=== PATIENT | female | born 1950 | race African-American/Black ===

== ENCOUNTER 2017-04-14 08:46 | Observation (INO) | payer OTHER, MEDICARE ==
[~2017-04-14] VITALS: Ht 162.6 cm; Wt 82.6 kg
[~2017-04-14 08:46] MED LIST: ALBUTEROL0.09 MG/A1 INH; ASPIR 8181 MG PO; AZITHROMYCIN250 MG PO; BENZONATATE200 MG PO; CIPRO 500MG TA500 MG PO; CYCLOBENZAPRINE10 M3 PO; CYCLOBENZAPRINE5 M2 PO; FLAG500 PO; GLIPIZIDE5 M2 PO; LOSARTAN POTAS100 M1 PO; METFORMIN HCL500 M1 PO; TRAMADOL HCL50 M1 PO; TRAMADOL50 MG PO; TYLENOL #31 TAB PO; TYLENOL WITH C1 EACH PO; ZOFRAN ODT4 MG SL
--- NOTE | 2017-04-14 08:56 | NUR ---
C/O DIZZINESS X 1 HOUR. DENIES CHEST PAIN OR SOB. STATES HSE FEELS LIKE SHE IS GOING TO PASS OUT. PMH: LEFT MASTECTOMY 03/08.
--- NOTE | 2017-04-14 09:01 | ED GENERAL ADULT ---
History of Present Illness General Chief Complaint: Dizziness Stated Complaint: DIZZY,BACK PAIN Source: patient, old records Exam Limitations: no limitations Vital Signs & Intake/Output Vital Signs & Intake/Output Vital Signs Date Time Temp Pulse Resp B/P B/P Pulse O2 O2 Flow FiO2 Mean Ox Delivery Rate 04/14 1152 95.2 57 20 185/93 99 Room Air 04/14 0912 71 168/84 04/14 0910 95.5 63 18 170/77 99 Allergies Coded Allergies: morphine (Mild, GI UPSET 12/24/15) oxycodone (Mild, GI UPSET 12/24/15) Penicillins (12/24/15) Sulfa (Sulfonamide Antibiotics) (12/24/15) ibuprofen (12/24/15) Reconcile Medications Albuterol Sulfate (Albuterol Sulfate Hfa) 90 MCG HFA.AER.AD 2 PUFF INH Q4-6 PRN PRN SHORTNESS OF BREATH 90 MCG PER PUFF Aspirin (Ecotrin) 81 MG TABLET.DR 1 TAB PO DAILY HEART HEALTH (Reported) Azithromycin 250 MG TABLET 1 DP PO AD INFECTION (Reported) 2 the first day followed by 1 for days 2-5 Benzonatate 200 MG CAPSULE 1 CAP PO TID COUGH (Reported) Ciprofloxacin (Cipro) 500 MG TABLET 1 TAB PO BID DIVERTICULITIS CYCLOBENZAPRINE HCL (Cyclobenzaprine Hydrochloride) 10 MG TABLET 1 TAB PO 4 TIMES/DAY MUSCLE SPASMS (Reported) Cyclobenzaprine HCl 5 MG TABLET 1 TAB PO QHS PRN muscle spasms Glipizide 5 MG TABLET 1 TAB PO DAILY DIABETES (Reported) Losartan Potassium 100 MG TABLET 1 TAB PO DAILY HEART (Reported) Metformin Hydrochloride (Metformin HCl) [address] 2 TAB PO BID DIABETES ( Reported) Metronidazole (Flagyl) 500 MG TAB 500 MG PO TID DIVERTICULITIS Ondansetron (Zofran Odt) 4 MG TAB.RAPDIS 1 TAB SL Q8HR PRN NAUSEA TRAMADOL HCL (Tramadol) 50 MG TAB 1 TAB PO Q6P PRN PAIN Tylenol With Codeine (Tylenol With Codeine #3 Tablet) 300 MG-30 MG TABLET 1 TAB PO Q6HR PRN PAIN Tylenol With Codeine (Tylenol With Codeine #3 Tablet) 1 EACH TABLET 1 TAB PO Q6HR PRN pain Triage Note: C/O DIZZINESS X 1 HOUR. DENIES CHEST PAIN OR SOB. PMH: LEFT MASTECTOMY 03/08. Triage Nurses Notes Reviewed? yes HPI: Patient woke up this morning and felt very lightheaded and liek she was going to pass out. She then developed a sharp stabbing pain in her mid back. Her lightheadedness continues but the sharp pain has decreased to a dull ache. She denies any chest pain or shortness of breath. There are no palpitations. Her lightheadedness is worsened with standing. There is no room spinning dizziness. There is no nausea or vomiting. The pain in her back was 7 out of 10 and sharp. It is currently 3 out of 10 and achy. There is no radiaiton. No aggrivating or mitigating factors. Past History Travel History Traveled to [place] past 21 day No Medical History Any Pertinent Medical History? 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 No Review of Systems Review of Systems Constitutional: Reports: no symptoms. EENTM: Reports: no symptoms. Respiratory: Reports: no symptoms. Cardiovascular: Reports: no symptoms. GI: Reports: no symptoms. Genitourinary: Reports: no symptoms. Musculoskeletal: Reports: see HPI, back pain. Skin: Reports: no symptoms. Neurological/Psychological: Reports: see HPI. Hematologic/Endocrine: Reports: no symptoms. Immunologic/Allergic: Reports: no symptoms. All Other Systems: Reviewed and Negative Physical Exam Physical Exam General Appearance: well developed/nourished, alert, awake, anxious, mild distress Head: atraumatic, normal appearance Eyes: Bilateral: PERRL, EOMI, other (no nystagmus). Ears, Nose, Throat: normal pharynx, normal ENT inspection, hearing grossly normal Neck: normal inspection, supple, full range of motion Respiratory: normal breath sounds, chest non-tender, no respiratory distress, lungs clear Cardiovascular: regular rate/rhythm, normal peripheral pulses Gastrointestinal: normal bowel sounds, soft, non-tender, no organomegaly Back: normal inspection, normal range of motion, no vertebral tenderness Extremities: normal inspection, normal capillary refill, normal range of motion, no edema Neurologic/Psych: no motor/sensory deficits, awake, alert, oriented x 3, normal mood/affect Skin: intact, normal color, warm/dry Lymphatic: no anterior cervical durga Core Measures ACS in differential dx? No CVA/TIA Diagnosis: Yes NIH Stroke Scale: Total 0 Dt/Tm Last Known Well: Yes Date Last Known Well: 04/13/17 Time Last Known Well: 2199 Neurological S/S of CVA: Dizziness Symptom start date: 04/13/17 Symptom start time: 2199 Reason tPA not ordered: Medical Contraindication Severe Sepsis Present: No Septic Shock Present: No Bedside Swallow Eval Done: No Result of Evaluation: Pass Progress Differential Diagnoses I considered the following diagnoses in my evaluation of the patient: [PE, AMI, ACS, electrolyte abnormality] Plan of Care: Orders Procedure Date/time Status Heart Healthy Diet 04/14 D Active Saline Lock 04/14 145 Active Misc Message 04/14 1459 Active ED Holding Orders 04/14 1459 Active Vital Signs 04/14 1459 Active Activity/Ambulation 04/14 1459 Active Code Status 04/[address] in observation 04/14 1458 Active Patient Data 04/14 1451 Active MISTAKE 04/14 0901 Active TROPONIN LEVEL 04/14 0859 Complete COMPREHENSIVE METABOLIC PANEL 04/14 0859 Complete CBC WITHOUT DIFFERENTIAL 04/14 0859 Complete EKG 04/14 0848 Active Laboratory Tests 04/14/17 0900: Anion Gap 11, Estimated GFR > 60, BUN/Creatinine Ratio 22.9, Glucose 160 H, Calcium 9.6, Total Bilirubin 0.5, AST 16, ALT 25, Alkaline Phosphatase 96, Troponin I < 0.01, Total Protein 6.5, Albumin 4.2, Globulin 2.3, Albumin/ Globulin Ratio 1.8, CBC w Diff NO MAN DIFF REQ, RBC 4.05 L, MCV 88.5, MCH 28.5, RDW 14.2, MPV 8.7, Gran % 66.5, Lymphocytes % 21.1, Monocytes % 8.9, Eosinophils % 2.7, Basophils % 0.8, Absolute Granulocytes 3.7, Absolute Lymphocytes 1.2, Absolute Monocytes 0.5, Absolute Eosinophils 0.1, Absolute Basophils 0, PUBS MCHC 32.3 L Diagnostic Imaging: Viewed by Me: CT Scan. Discussed w/RAD: CT Scan. Radiology Impression: PATIENT: RAFAEL ARAGON PRESENT AGE: 67 PATIENT ACCOUNT NO: [id number] : 51 LOCATION: [facility] ([place]) ORDERING PHYSICIAN: YRN HI MD SERVICE DATE: 04/14/17-1007 EXAM TYPE: CAT - CTA CHEST-PULMONARY EMBOLISM EXAMINATION: CT ANGIOGRAM CHEST WITH AND WITHOUT CONTRAST (CT PULMONARY ANGIOGRAM FOR PE) CLINICAL INFORMATION: Chest pain and shortness of breath. COMPARISON: CT chest 09/02/2016. TECHNIQUE: Prior to contrast administration, noncontrast localization images were obtained. Subsequently, multidetector volumetric imaging was performed from the thoracic inlet to below the diaphragms following the administration of 94 mL Optiray 350 intravenous contrast. No contrast reaction reported. Sagittal, coronal, and MIP oblique sagittal reformatted images were obtained on the CT workstation, uploaded to PACS, and reviewed. DLP: 509.73 mGy-cm. FINDINGS: QUALITY OF STUDY/ CONTRAST BOLUS: Satisfactory PULMONARY ARTERIES: No central or segmental pulmonary emboli. No right heart strain. THORACIC AORTA: There are mild calcifications of the aortic valve. The ascending thoracic aorta is normal in course and caliber without aneurysmal dilatation or dissection. There is a bovine aortic arch with early takeoff of the left carotid artery from the innominate artery. The descending thoracic aorta is normal in course and caliber without aneurysmal dilatation or dissection. LUNG: No focal consolidation, nodules or masses. PLEURA: No pleural effusion or pneumothorax. MEDIASTINUM: The heart size is normal. No pericardial effusion. A prominent left superior mediastinal lymph node (4, ) and a few other prominent paratracheal nodes are not significantly changed from the prior exam. No evidence of septal bowing or right heart strain. CHEST WALL/AXILLAE: The patient is status post left mastectomy. No enlarged axillary lymph nodes are identified. There are postsurgical changes/scarring in the left axilla. OSSEOUS STRUCTURES: No acute or suspicious osseous abnormality. UPPER ABDOMEN: Unremarkable. No reflux of contrast into the hepatic veins to suggest elevated right heart pressures. IMPRESSION: 1. No evidence of pulmonary embolism. 2. No acute abnormality in the chest. 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 <Electronically signed in Other Vendor System> SIGNED BY: KIARRA URBANO MD 04/14/17 1203 Initial ED EKG: NSR, nonspecific ST T wave chg Prior EKG: unchanged Rhythm Strip: normal sinus rhythm Comments: PT STILL FELT LIGHTHEADED WHEN SHE GOT UP TO GO TO THE BATHROOM AND WHILE SLIDING OVER TO THE CT TABLE. SHE HAS A HISTORY OF VERTIGO BUT DOES NOT REMEBER WHAT THOSE SYMPTOMS WERE. PT IS FEELING BETTER POST ANTIVERT. WILL HAVE HER AMBULATE AND RE-EVAL. PT STILL UNABLE TO AMBULATE. WILL BRING IN TO OBS FOR NEURO CONSULT AND MRI TO R/O POSTERIOR CIRC. CVA. Departure Departure Disposition: STILL A PATIENT Condition: Guarded Clinical Impression Primary Impression: Vertigo Referrals: ANKUSH CHINCHILLA MD (PCP/Family) Departure Forms: Customer Survey General Discharge Information Observation Note Spoke With: ANKUSH CHINCHILLA MD Physician Advisor Notified: LARA CAMPUZANO,CASIE Estrada Place Patient In: Non-ED OBS Care Area Rationale for Observation: My rational for observation is as follows [TELE MONITORING, NEUROLOGY CONSULTATION, MRI/MRA]. Critical Care Note Critical Care Note Critical Care Time: non-applicable
--- NOTE | 2017-04-14 09:09 | NUR ---
EVALUATED BY DR. HI. EKG DONE. LABS DRAWN AND SENT.
[2017-04-14 09:20] LABS: ABSOLUTE BASOPHIL COUNT 0 /CUMM (0.0-0.2); ABSOLUTE EOSINOPHIL COUNT 0.1 /CUMM (0.0-0.7); ABSOLUTE GRANULOCYTE CT 3.7 /CUMM (1.4-6.5); ABSOLUTE LYMPH COUNT 1.2 /CUMM (1.2-3.4); ABSOLUTE MONOCYTE COUNT 0.5 /CUMM (0.10-0.60); BASOPHIL % 0.8 % (0.0-2.0); EOSINOPHIL % 2.7 % (0-5); GRANULOCYTE % 66.5 % (42.2-75.2); HEMATOCRIT 35.8 % (37-47); MEAN CORPUSCULAR HGB 28.5 PG (27.0-31.0); MEAN CORPUSCULAR HGB CONC 32.3 G/DL (33.0-37.0); MEAN CORPUSCULAR VOLUME 88.5 FL (81.0-99.0); MEAN PLATELET VOLUME 8.7 FL (7.4-10.4); PLATELET COUNT 284 /CUMM (130-400); RBC DISTRIBUTION WIDTH 14.2 % (11.5-14.5); RED BLOOD CELL CT 4.05 /CUMM (4.20-5.40); WHITE BLOOD CELL COUNT 5.5 /CUMM (4.8-10.8)
--- NOTE | 2017-04-14 10:30 | NUR ---
TO CT SCAN.
--- NOTE | 2017-04-14 12:03 | CT SCAN REPORT ---
EXAMINATION: CT ANGIOGRAM CHEST WITH AND WITHOUT CONTRAST (CT PULMONARY ANGIOGRAM FOR PE) CLINICAL INFORMATION: Chest pain and shortness of breath. COMPARISON: CT chest 09/02/2016. TECHNIQUE: Prior to contrast administration, noncontrast localization images were obtained. Subsequently, multidetector volumetric imaging was performed from the thoracic inlet to below the diaphragms following the administration of 94 mL Optiray 350 intravenous contrast. No contrast reaction reported. Sagittal, coronal, and MIP oblique sagittal reformatted images were obtained on the CT workstation, uploaded to PACS, and reviewed. DLP: 509.73 mGy-cm. FINDINGS: QUALITY OF STUDY/CONTRAST BOLUS: Satisfactory PULMONARY ARTERIES: No central or segmental pulmonary emboli. No right heart strain. THORACIC AORTA: There are mild calcifications of the aortic valve. The ascending thoracic aorta is normal in course and caliber without aneurysmal dilatation or dissection. There is a bovine aortic arch with early takeoff of the left carotid artery from the innominate artery. The descending thoracic aorta is normal in course and caliber without aneurysmal dilatation or dissection. LUNG: No focal consolidation, nodules or masses. PLEURA: No pleural effusion or pneumothorax. MEDIASTINUM: The heart size is normal. No pericardial effusion. A prominent left superior mediastinal lymph node (4, ) and a few other prominent paratracheal nodes are not significantly changed from the prior exam. No evidence of septal bowing or right heart strain. CHEST WALL/AXILLAE: The patient is status post left mastectomy. No enlarged axillary lymph nodes are identified. There are postsurgical changes/scarring in the left axilla. OSSEOUS STRUCTURES: No acute or suspicious osseous abnormality. UPPER ABDOMEN: Unremarkable. No reflux of contrast into the hepatic veins to suggest elevated right heart pressures. IMPRESSION: 1. No evidence of pulmonary embolism. 2. No acute abnormality in the chest. VTE: negative
--- NOTE | 2017-04-14 12:30 | NUR ---
MEDICATED FOR DIZZINESS.
--- NOTE | 2017-04-14 13:13 | NUR ---
ATTEMPTED TO AMBULATE PT. PT COMPLAINING OF DIZZINESS. AMBULATED BACK TO BED AND MD HI AND JOHN BOTELLO
--- NOTE | 2017-04-14 13:13 | NUR ---
MANUAL BP 160/80
--- NOTE | 2017-04-14 13:30 | NUR ---
DIETARY CALLED FOR FOOD TRAY.
--- NOTE | 2017-04-14 14:58 | NUR ---
SIILL DIZZY AFTER VALIUM. TO BE ADMITTED (TELE OBS).
--- NOTE | 2017-04-14 14:59 | NUR ---
EATING LUNCH. REMAINS IN SINUS RHTYHM.
--- NOTE | 2017-04-14 15:33 | History & Physical ---
FERNANDA NARANJO MD 04/14/17 1532: General Information and HPI History of Present Illness: 67 year old woman with past medical history of HTN, Gout, Neuropathy, NIDDM, Breast Cancer, Vertigo seen for evaluation of back pain and dizziness. Patient reports waking up in her normal state of health around 5am this morning and states that a few hours later she was sitting at her table when she suddenly developed lighteadedness/dizziness that was worse with movement and sharp 4-5/10 low back pain radiating up her back. Nothing made either of these symptoms better, patient did not try to lay down. She admits to a history of vertigo with the "room spinning" but does not feel that these symptoms are similar to these episodes. Patient otherwise denies any blurred/double vision, new numbness/weakness, headache, fever, chills, chest pain/discomfort, palpitations, shortness of breath, nausea, vomiting, urinary complaints/constipation. 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 Exam & Diagnostic Data Last 24 Hrs of Vital Signs/I&O Vital Signs Date Time Temp Pulse Resp B/P B/P Pulse O2 O2 Flow FiO2 Mean Ox Delivery Rate 04/14 1536 97.0 62 18 154/85 98 Room Air Room Air 04/14 1152 95.2 57 20 185/93 99 Room Air 04/14 0912 71 168/84 04/14 0910 95.5 63 18 170/77 99 Intake & Output 04/14 1600 04/14 0800 04/14 0000 Intake Total 1000 Output Total Balance 1000 Intake, IV 1000 Patient 82.554 kg Weight Weight Reported by Patient Measurement Method Physical Exam General Appearance Alert, Oriented X3, Cooperative, No Acute Distress Last 24 Hrs of Labs/Thiago: Laboratory Tests 04/14/17 1718: Troponin I Pending 04/14/17 0900: Anion Gap 11, Estimated GFR > 60, BUN/Creatinine Ratio 22.9, Glucose 160 H, Calcium 9.6, Total Bilirubin 0.5, AST 16, ALT 25, Alkaline Phosphatase 96, Troponin I < 0.01, Total Protein 6.5, Albumin 4.2, Globulin 2.3, Albumin/ Globulin Ratio 1.8, CBC w Diff NO MAN DIFF REQ, RBC 4.05 L, MCV 88.5, MCH 28.5, RDW 14.2, MPV 8.7, Gran % 66.5, Lymphocytes % 21.1, Monocytes % 8.9, Eosinophils % 2.7, Basophils % 0.8, Absolute Granulocytes 3.7, Absolute Lymphocytes 1.2, Absolute Monocytes 0.5, Absolute Eosinophils 0.1, Absolute Basophils 0, PUBS MCHC 32.3 L Diagnostic Data EKG Results NSR HR 61 MD 139 QTc 391 Other Results SERVICE DATE: 04/14/17 EXAM TYPE: CAT - CTA CHEST-PULMONARY EMBOLISM IMPRESSION: 1. No evidence of pulmonary embolism. 2. No acute abnormality in the chest. VTE: negative Assessment/Plan Assessment: 67 year old woman with multiple medical problems seen for evaluation of acute onset dizziness and back pain. Patient admits to persistent dizziness without any 'room spinning' as she has experienced in the past with her episodes of vertigo. She states the back pain started at the time without any new neurologic symptoms. Vital signs are significant for elevated blood pressure. Physical examination was grossly unremarkable, there is a well healed surgical incision on the left breast from her recent mastectomy with a surgical dressing in place. CBC/BEP/LFTs/troponin all within normal limits. CTA negative for pulmonary embolism. Given patients atypical presentation of symptoms and her vague complaints she is placed under observation on the telemetry floor for further evaluation. Probe List: #Dizziness with history of Vertigo #Low back pain #Breast Cancer s/p mastectomy/chemo #Hypertension #Non-insulin dependent diabetes mellitus Plan: -Telemetry Obs -Orthostats -Fall precautions -Troponin/EKG x 3 -NS @ 75mL/hr -Accuchecks/Novolog SSI -Meclizine 25mg PO TID -Gabapentin 300mg PO TID -Cozaar 100mg PO Daily -Pain control with acemtaminophen, dilaudid -PT evaluation -DVT PPx with subcutaneous heparin -FULL CODE -MRI L-Spine if symptoms worsen -Consider Neurology consult if patient worsens As Ranked By This Provider Problem List: 1. Dizziness Core Measures/Miscellaneous Acute Coronary Syndrome ACS Diagnosis: No Cerebrovascular Accident CVA/TIA Diagnosis: No Date Last Known Well: 04/13/17 Time Last Known Well: 2199 Neurological S/S of CVA: Dizziness Symptom Start Date: 04/13/17 Symptom Start Time: 2199 Reason tPA not ordered Medical Contraindication Bedside Swallow Eval Done: No Result of Evaluation: Pass Congestive Heart Failure CHF Diagnosis: No VTE (View Protocol) VTE Risk Factors: Acute medical illness, Age > 40, Cancer/chemo/oth therapy, Obesity No Mech VTE prophylaxis d/t: No contraindications No VTE Pharm Prophylaxis d/t: No contraindications VTE Diagnosis: No VTE Type: NONE VTE Confirmed by (Test): NONE Sepsis (View Protocol) Severe Sepsis Present: No Septic Shock Septic Shock Present: No Miscellaneous Documentation Attending Case Discussed With: ANKUSH CHINCHILLA MD Primary Care Physician: ANKUSH CHINCHILLA MD Patient sees these Specialists Oncology Level of Patient Care: Telemetry JHON CUMMINGS 04/14/17 1601: General Information and HPI Allergies/Medications Home Med list Colchicine (Colcrys) 0.6 MG TABLET 1 TAB PO DAILY gout (Reported) Gabapentin 300 MG CAPSULE 1 CAP PO TID neuropathy (Reported) Glipizide 5 MG TABLET 1 TAB PO BID diabetes (Reported) Losartan Potassium 100 MG TABLET 1 TAB PO DAILY htn (Reported) Metformin HCl (Metformin HCl ER) 500 MG TAB.ER.24 2 TAB PO BID DIABETES ( Reported) Sennosides (Senna) 8.6 MG TABLET 2 TAB PO BID constipation (Reported) Tramadol HCl 50 MG TABLET 1 TAB PO Q6P PRN pain (Reported) Resident Review Statement Resident Statement: examined this patient, discussed with internal audit consultant, agreed with internal audit consultant, discussed with family, reviewed EMR data (avail), discussed with nursing , discussed with case mgmt, reviewed images, amended to note Other Findings: 67-year-old female with a past medical history of invasive ductal carcinoma of the left breast status post mastectomy and neoadjuvant chemotherapy scheduled to start radiation on Tuesday, pid-ysjovfz-puvykbdzs diabetes mellitus, diverticulitis, hypertension, sciatica presented to the ER with chief complaints of dizziness that has been going on for the past 1 hour now. According to the patient she woke up this morning at around 5 AM had her routine breakfast or at around 8 AM she felt dizzy as if she was kind of assessment. She states that she sat down again and got up, however felt similar as if she would fall and pass out. Denies any chest pain, palpitations, nausea, vomiting, spinning sensation. She also endorsed a sharp lower back pain that she grades as a 45 out of 10 in intensity. She states that the pain shot up her back. She denies any numbness, weakness, urinary or fecal incontinence, paresthesias in her lower extremities. There is no history of slurred speech, asymmetry of her face. Of note she recently had an episode of gout and was started on colchicine this past Tuesday. She states that she's been pretty much compliant with her medications and has been eating and drinking well. Vitals at the time of admission blood pressure 185/93, respiratory rate of 20, pulse 57, afebrile saturating 99% on room air. On physical exam she is alert, oriented 3 and in mild distress sitting comfortably in bed. HEENT revealed PERRLA, dry mucous membranes. Cardiovascular exam revealed normal S1, S2, no murmurs rubs or gallops. Examination of the neck did not reveal an elevated JVP or cervical lymphadenopathy. Chest is clear to auscultation bilaterally. Abdominal exam was benign with abdomen soft, nontender, non-distended sounds in all 4 quadrants. Examination of the lower extremity reveal any edema however there was swelling of the right ankle. The straight leg test was also positive on the right side, with minimal paraspinal tenderness appreciated at the lumbo-sacral junction. Labs pertinent for an H&H of 11.6/35.8, normal MCV of 1588.5, platelet count 284 ,000. She had no leukocytosis with a white blood cell count 5500. Serum chemistries revealed a sodium of 137, potassium of 4.3, bicarbonate 22, anion gap of 11, BUN 16 with a creatinine of 0.7. Serum glucose elevated to 160. LFTs unremarkable with AST/ALT of 16/25, alkaline phosphatase of 96, first set troponin negative less than 0.01. CT chest was done that showed no evidence of pulmonary embolism or acute abnormality in the chest EKG: low voltage, normal sinus rhythm heart rate of 61, MD interval 139, left axis deviation, no ST-T changes In the ER she received aspirin 325 mg by mouth 1, diazepam 5 mg by mouth 1, meclizine 12.5 mg by mouth 1 and was given a bolus of normal saline.She was feeling better post anti-were however unable to ambulate and lightheaded when she got off toward the bathroom a sliding over to the CAT scan table. She will be admitted under observation to telemetry. Assessment and Plan: #Dizziness Differentials include orthostatic hypotension versus BPPV versus stroke of vertebrobasilar area (pateint does not have any neurological signs or symptoms). Will hydrate her with IVFs and check orthostats. Will start on Meclizine 25mg TID F/U in AM. If symptoms do not improve will get Neuro eval in am. Maintain on fall precautions. Trop and EKG x2 to r/o ACS #Low back pain 2/2 sciatica as her STR is positive on R side. No evidence of saddle anesthesia. Pain management PT/OT eval in AM X ray of lumbar spine to r/o compression fracture given hx of cancer Will also order lidoderm patch for local reilief and flexril 5mg TID PRN for muscle spasm. Consider MRI of lumbar spine if symtoms worsen. #HTN Continue on Cozaar 100mg daily #NIDDM Will hold Metformin while she is in the hospital Maintain her on Novolog sliding scale. #Gout Completed the course of Colchicine. Pain management with Ibuprofen # Breast cancer s/p resection and chemotherapy WOund care with bacitracin and dry dressing change. - Diet - Consistent carb 3 - DVT prophylaxis - Heparin 5000IU TID SC - Code Status - Full Code
--- NOTE | 2017-04-14 15:35 | NUR ---
PT CARE ASSUMED BY THIS RN AT THIS TIME. PT MEDICATED PER EMAR. OFFERS NO COMPLAINTS AT THIS TIME.
[2017-04-14] MEDS ORDERED: TRAMADOL HCL50 M1 PO (16:22)
[2017-04-14] MEDS ORDERED: GABAPENTIN300 M2 PO (16:22)
[2017-04-14] MEDS ORDERED: COLCRYS0.6 M1 PO (16:23)
[2017-04-14] MEDS ORDERED: SENNA8.6 M3 PO (16:24)
[2017-04-14] MEDS ORDERED: METFORMIN HCL500 M2 PO (16:27)
--- NOTE | 2017-04-14 16:57 | NUR ---
BED 178
--- NOTE | 2017-04-14 17:19 | NUR ---
REPEAT TROP DRAWN AND SENT BY THIS MST.
--- NOTE | 2017-04-14 17:21 | NUR ---
PER NAYELI RN WILL CALL BACK FOR REPORT.
--- NOTE | 2017-04-14 18:29 | PN- Att Addend ---
Attending Addendum Attending Brief Note 67 year old female with recent diagnosis and treatment for breast cancer to start radiation therapy next week. earlier today started with dizziness and lightheadedness came to the ER had testing and treatment but no relief of symptoms unable to get up. will keep on observation gently hydrate and medicate reassess in am if needed neurology consult. Laboratory Tests 04/14 04/14 1718 0900 Chemistry Sodium (137 - 145 mmol/L) 137 Potassium (3.5 - 5.1 mmol/L) 4.3 Chloride (98 - 107 mmol/L) 104 Carbon Dioxide (22 - 30 mmol/L) 22 Anion Gap (5 - 16) 11 BUN (7 - 17 mg/dL) 16 Creatinine (0.5 - 1.0 mg/dL) 0.7 Estimated GFR (>60 ml/min) > 60 BUN/Creatinine Ratio (7 - 25 %) 22.9 Glucose (65 - 99 mg/dL) 160 H Calcium (8.4 - 10.2 mg/dL) 9.6 Total Bilirubin (0.2 - 1.3 mg/dL) 0.5 AST (14 - 36 U/L) 16 ALT (9 - 52 U/L) 25 Alkaline Phosphatase (<127 U/L) 96 Troponin I (< 0.11 ng/ml) < 0.01 < 0.01 Total Protein (6.3 - 8.2 g/dL) 6.5 Albumin (3.5 - 5.0 g/dL) 4.2 Globulin (1.9 - 4.2 gm/dL) 2.3 Albumin/Globulin Ratio (1.1 - 2.2 %) 1.8 Hematology CBC w Diff NO MAN DIFF REQ WBC (4.8 - 10.8 /CUMM) 5.5 RBC (4.20 - 5.40 /CUMM) 4.05 L Hgb (12.0 - 16.0 G/DL) 11.6 L Hct (37 - 47 %) 35.8 L MCV (81.0 - 99.0 FL) 88.5 MCH (27.0 - 31.0 PG) 28.5 RDW (11.5 - 14.5 %) 14.2 Plt Count (130 - 400 /CUMM) 284 MPV (7.4 - 10.4 FL) 8.7 Gran % (42.2 - 75.2 %) 66.5 Lymphocytes % (20.5 - 51.1 %) 21.1 Monocytes % (1.7 - 9.3 %) 8.9 Eosinophils % (0 - 5 %) 2.7 Basophils % (0.0 - 2.0 %) 0.8 Absolute Granulocytes (1.4 - 6.5 /CUMM) 3.7 Absolute Lymphocytes (1.2 - 3.4 /CUMM) 1.2 Absolute Monocytes (0.10 - 0.60 /CUMM) 0.5 Absolute Eosinophils (0.0 - 0.7 /CUMM) 0.1 Absolute Basophils (0.0 - 0.2 /CUMM) 0 PUBS MCHC (33.0 - 37.0 G/DL) 32.3 L CTA of the chest no acute abnormalities.
--- NOTE | 2017-04-14 18:49 | NUR ---
REPORT GIVEN TO JOHN JOYCE. TRANSPORT BOOKED.
--- NOTE | 2017-04-14 19:43 | RADIOLOGY REPORT ---
EXAMINATION: XR LUMBOSACRAL SPINE CLINICAL INFORMATION: Lower back pain. Breast cancer history. COMPARISON: 12/24/2015. TECHNIQUE: Routine 4 view series. FINDINGS: LUMBAR: Bone mineral density, vertebral body height, and alignment is maintained without evidence of acute fracture or dislocation. There is no significant curvature. No focal destructive or sclerotic osseous lesions are seen. Disc space height appears fairly well-maintained throughout. There is mild facet joint space narrowing most notably at the lumbosacral junction with mild hypertrophic productive changes. There are postoperative changes most consistent with an anterior abdominal wall hernia repair unchanged. IMPRESSION: Fairly stable appearing examination with mild degenerative facet changes. No acute process identified. No evidence of metastatic disease.
[2017-04-14 20:01] VITALS: BP 142/80
--- NOTE | 2017-04-14 20:30 | NUR ---
ADMISSION ASSESSMENT: PT ARRIVED TO FLOOR A/O X3, ABLE TO AMBULATE WITH MINIMAL ASSISTANCE. C/O MILD DIZZINESS UPON SITTING/STANDING. NO HX FALLS. ROOM AIR, LUNGS CLEAR TO AUSCULTATION, NO S/S RESPIRATORY DISTRESS. NSR, SINUS YANA ON HEART MONITOR. NO C/O PAIN. + BOWELSOUNDS, LAST BM 04/13/17. NEW DRESSING TO LEFT BREAT/CHEST S/P MASTECTOMY APPLIED WITH BACITRACIN AND TELFA. PER PT DAILY DRESSINGS WITH NONADHERENT GAUZE AND BACITRACIN. IV TO RF CDI AND FLUSHES WELL.
[2017-04-15 00:30] VITALS: BP 136/72
--- NOTE | 2017-04-15 05:43 | PN-Observation ---
Observation Note Observation Note _ I have personally examined RAFAEL ARAGON. her disposition is uncertain at this time. Before a determination can be made, she requires continued observation for the following reasons: * Interval assessment for any neurologic status changes * Consideration for advanced imaging or neurological consultation Assessment/Plan Assessment: 67 year old woman with multiple medical problems seen for evaluation of acute onset dizziness and back pain. Patient admits to persistent dizziness without any 'room spinning' as she has experienced in the past with her episodes of vertigo. She states the back pain started at the time without any new neurologic symptoms. Vital signs are significant for elevated blood pressure. Physical examination was grossly unremarkable, there is a well healed surgical incision on the left breast from her recent mastectomy with a surgical dressing in place. CBC/BEP/LFTs/troponin all within normal limits. CTA negative for pulmonary embolism. Given patients atypical presentation of symptoms and her vague complaints she is placed under observation on the telemetry floor for further evaluation. #Dizziness with history of Vertigo #Low back pain #Breast Cancer s/p mastectomy/chemo Patient was monitored on the telemetry floor and two sets of troponins/EKGs were obtained and were otherwise negative. Orthostatic blood pressures were negative. She was maintained on fall precautions, however worked well with physical therapy whom determined that she would benefit from continued use of a rolling walker and may be considered for home physical therapy. -Telemetry Obs -Orthostats -Fall precautions -NS @ 75mL/hr -Meclizine 25mg PO TID -Gabapentin 300mg PO TID -PT evaluation: Rolling walker, HPT #Non-insulin dependent diabetes mellitus -Accuchecks TIDAC/HS -Hold oral hypoglycemics -Novolog SSI #Hypertension-Cozaar 100mg PO Daily Pain Plan-acemtaminophen, dilaudid Diet-Diabetic Diet DVT PPx-subcutaneous heparin Code Status-FULL CODE Problem List: 1. Dizziness Subjective Follow-up For: Dizziness/Lightheaded Low Back pain Tele-Events Since Last Visit: NSR HR 57-76 No events Subjective: Patient seen and examined. She is seen sitting upright in her chair at bedside. She appears to be in no acute distress. She reports feeling well and denies any further episodes of lightheadedness or dizziness or any persistent low back pain. She otherwise feels as if she were back to her usual state of health. Otherwise she denies any blurred/double vision, lightheadedness/dizzines, headache, fever, chills, chest pain/palpitations, shortness of breath, nausea, vomiting, diarrhea. Review of Systems Constitutional: Reports: see HPI. Objective Last 24 Hrs of Vital Signs/I&O Vital Signs Date Time Temp Pulse Resp B/P B/P Pulse O2 O2 Flow FiO2 Mean Ox Delivery Rate 04/15 0907 58 114/82 04/15 0756 98.8 58 14 114/82 97 Room Air 04/15 0030 98.2 77 18 136/72 97 Room Air 04/14 2001 98.2 62 16 142/80 98 Room Air 04/14 1903 97.2 64 19 148/82 99 Room Air 04/14 1536 97.0 62 18 154/85 98 Room Air Room Air 04/14 1152 95.2 57 20 185/93 99 Room Air Intake & Output 04/15 1600 04/15 0800 04/15 0000 Intake Total 750 600 Output Total Balance 750 600 Intake, IV 600 Intake, Oral 150 600 Number 0 Bowel Movements Patient 82.554 kg Weight Physical Exam General Appearance: Alert, Oriented X3, Cooperative, No Acute Distress Other Physical Findings: General- well developed, well nourished elderly woman in no acute distress HEENT- NCAT, PERRL, EOMI, anicteric sclera, moist mucous membranes Chest- S1, S2 w/o m/g/r; Lung- CTA bilaterally Abdomen- soft, nontender, nondistended, bowel sounds intact Neuro- Awake and alert, CN II-XII grossly intact, oriented to person/place/time Ext- normal pulses, no cyanosis/clubbing/edema
[2017-04-15 07:56] VITALS: BP 114/82
[2017-04-15 08:01] LABS: ABSOLUTE BASOPHIL COUNT 0 /CUMM (0.0-0.2); ABSOLUTE EOSINOPHIL COUNT 0.2 /CUMM (0.0-0.7); ABSOLUTE GRANULOCYTE CT 2.8 /CUMM (1.4-6.5); ABSOLUTE LYMPH COUNT 1.3 /CUMM (1.2-3.4); ABSOLUTE MONOCYTE COUNT 0.4 /CUMM (0.10-0.60); BASOPHIL % 0.5 % (0.0-2.0); EOSINOPHIL % 3.6 % (0-5); GRANULOCYTE % 59.8 % (42.2-75.2); HEMATOCRIT 31.9 % (37-47); MEAN CORPUSCULAR HGB 29.1 PG (27.0-31.0); MEAN CORPUSCULAR HGB CONC 33.2 G/DL (33.0-37.0); MEAN CORPUSCULAR VOLUME 87.6 FL (81.0-99.0); MEAN PLATELET VOLUME 8.5 FL (7.4-10.4); PLATELET COUNT 245 /CUMM (130-400); RBC DISTRIBUTION WIDTH 14.1 % (11.5-14.5); RED BLOOD CELL CT 3.64 /CUMM (4.20-5.40); WHITE BLOOD CELL COUNT 4.7 /CUMM (4.8-10.8)
[2017-04-15] MEDS ORDERED: LIDODERM1 EACH EXT (11:12)
[2017-04-15] MEDS ORDERED: MECLIZINE HCL25 MG PO (11:12)
--- NOTE | 2017-04-15 11:15 | Patient Discharge Instructions ---
Discharge Instructions General Discharge Information Special Instructions: Take meclizine and lidocaine patches as directed. Continue all your previous home medications as previously directed. Follow up with your primary care provider after discharge. Acute Coronary Syndrome Inclusion Criteria At DC or during hospital stay patient has or had the following: ACS DIAGNOSIS No Discharge Core Measures Meds if any: Prescribed or Continued at Discharge Meds if any: NOT Prescribed or Continued at Discharge Congestive Heart Failure Inclusion Criteria At DC or during hospital stay patient has or had the following: CHF DIAGNOSIS No Discharge Core Measures Meds if any: Prescribed or Continued at Discharge Meds if any: NOT Prescribed or Continued at Discharge Cerebrovascular accident Inclusion Criteria At DC or during hospital stay patient has or had the following: CVA/TIA Diagnosis No Discharge Core Measures Meds if any: Prescribed or Continued at Discharge Meds if any: NOT Prescribed or Continued at Discharge Venous thromboembolism Inclusion Criteria VTE Diagnosis No VTE Type NONE VTE Confirmed by (Test) NONE Discharge Core Measures - Per Current guidelines, there needs to be overlap - treatment for the first 5 days of Warfarin therapy. - If discharged on Warfarin prior to 5 days of - overlap therapy, the patient will need to be - assessed for post discharge needs including - *Post discharge parental anticoagulation - *Warfarin and/or parental anticoagulation education - *Follow up date to check INR post discharge At least 5 days overlap therapy as Inpatient No Meds if any: Prescribed or Continued at Discharge Note: Overlap Therapy is Warfarin and Anticoagulant Meds if any: NOT Prescribed or Continued at Discharge
[2017-04-15 15:30] VITALS: BP 122/64
--- NOTE | 2017-04-15 16:52 | Event Note ---
Event Note Event Note: Patient was all set for discharge, however, requests to extend her stay as she feels uncomfortable going home, and is concerned about recurrence of her symptoms. Spoke with Dr. Pereira, who recommended extedniing the obs by 24 hrs. Of note , patient is boderline orthostatic positive. Will adminster IVFs and revaluate tomorrow.
--- NOTE | 2017-04-15 18:20 | PN- Att Addend ---
Attending Addendum Attending Brief Note Patient was better this morning stiffness little dizzy, vital signs are stable not really orthostatic with no major changes on physical. Later on when the patient was ready to be discharged patient complained that she was still a little dizzy and was afraid to go home. Will monitor and will give some hydration and reassess in the morning and hopefully she will be able to go home. 24 TOTALS 04/15 0000 04/14 0000 Intake Total 1600 Output Total Balance 1600 Intake, IV 1000 Intake, Oral 600 Patient 182 lb Weight Weight Reported by Patient Measurement Method Laboratory Tests 04/15/17 0610: Anion Gap 5, Estimated GFR > 60, BUN/Creatinine Ratio 21.7, CBC w Diff NO MAN DIFF REQ, RBC 3.64 L, MCV 87.6, MCH 29.1, RDW 14.1, MPV 8.5, Gran % 59.8, Lymphocytes % 27.2, Monocytes % 8.9, Eosinophils % 3.6, Basophils % 0.5, Absolute Granulocytes 2.8, Absolute Lymphocytes 1.3, Absolute Monocytes 0.4, Absolute Eosinophils 0.2, Absolute Basophils 0, PUBS MCHC 33.2 04/14/17 1718: Troponin I < 0.01 04/14/17 0900: Anion Gap 11, Estimated GFR > 60, BUN/Creatinine Ratio 22.9, Glucose 160 H, Calcium 9.6, Total Bilirubin 0.5, AST 16, ALT 25, Alkaline Phosphatase 96, Troponin I < 0.01, Total Protein 6.5, Albumin 4.2, Globulin 2.3, Albumin/ Globulin Ratio 1.8, CBC w Diff NO MAN DIFF REQ, RBC 4.05 L, MCV 88.5, MCH 28.5, RDW 14.2, MPV 8.7, Gran % 66.5, Lymphocytes % 21.1, Monocytes % 8.9, Eosinophils % 2.7, Basophils % 0.8, Absolute Granulocytes 3.7, Absolute Lymphocytes 1.2, Absolute Monocytes 0.5, Absolute Eosinophils 0.1, Absolute Basophils 0, PUBS MCHC 32.3 L
[2017-04-15 23:27] VITALS: BP 112/62
--- NOTE | 2017-04-16 06:00 | PN-Observation ---
See Addendum Observation Note Observation Note _ I have personally examined RAFAEL ARAGON. her disposition is uncertain at this time. Before a determination can be made, she requires continued observation for the following reasons [dizziness 2/2 being orthostatic positive] . Assessment/Plan Assessment: 67 year old woman with multiple medical problems seen for evaluation of acute onset dizziness and back pain. Patient admits to persistent dizziness without any 'room spinning' as she has experienced in the past with her episodes of vertigo. She states the back pain started at the time without any new neurologic symptoms. Vital signs are significant for elevated blood pressure. Physical examination was grossly unremarkable, there is a well healed surgical incision on the left breast from her recent mastectomy with a surgical dressing in place. CBC/BEP/LFTs/troponin all within normal limits. CTA negative for pulmonary embolism. Given patients atypical presentation of symptoms and her vague complaints she is placed under observation on the telemetry floor for further evaluation. #Dizziness with history of Vertigo #Low back pain #Breast Cancer s/p mastectomy/chemo Patient was monitored on the telemetry floor and two sets of troponins/EKGs were obtained and were otherwise negative. Orthostatic blood pressures were boderlien psoitive. She was maintained on fall precautions, however worked well with physical therapy whom determined that she would benefit from continued use of a rolling walker and may be considered for home physical therapy. -Fall precautions -NS @ 75mL/hr -Meclizine 25mg PO TID -Gabapentin 300mg PO TID -PT evaluation: Rolling walker, HPT - Can be discahrged home today #Non-insulin dependent diabetes mellitus -Accuchecks TIDAC/HS -Hold oral hypoglycemics -Novolog SSI #Hypertension-Cozaar 100mg PO Daily Pain Plan-acemtaminophen, dilaudid Diet-Diabetic Diet DVT PPx-subcutaneous heparin Code Status-FULL CODE Problem List: 1. Dizziness Discharge Plan Discharge Disposition: home Subjective Follow-up For: - Dizziness - Low back pain Complaints: no complaints Tele-Events Since Last Visit: Sinus rythm 71-78, no overnight events. Subjective: Patient seen and examined at bedside. She slept well last night, and had no complaints. She was dizzy on ambulation yesterday and boderline orthostat positive, which is why we extedned her obs status and hydrated her with IVF. Review of Systems Constitutional: Denies: chills, fever, weakness. EENTM: Denies: visual changes. Cardiovascular: Denies: chest pain, orthopena, palpitations. Respiratory: Denies: cough, orthopnea, short of breath, sputum production. Gastrointestinal: Denies: abdominal pain, nausea, vomiting. Genitourinary: Reports: no symptoms. Neurological/Psychological: Denies: headache, numbness, tingling, tremors. Objective Last 24 Hrs of Vital Signs/I&O Vital Signs Date Time Temp Pulse Resp B/P B/P Pulse O2 O2 Flow FiO2 Mean Ox Delivery Rate 04/157 99.5 87 18 112/62 97 Room Air 04/15 1530 98.8 63 14 122/64 98 Room Air 04/15 0907 58 114/82 04/15 0756 98.8 58 14 114/82 97 Room Air Intake & Output 04/16 0800 04/16 0000 04/15 1600 Intake Total 935 600 Output Total Balance 935 600 Intake, IV 375 Intake, Oral 560 600 Number 1 Bowel Movements Physical Exam General Appearance: Alert, Oriented X3, Cooperative, No Acute Distress HEENT: Atraumatic, PERRLA, EOMI, Mucous Membr. moist/pink Neck: Supple, No JVD Cardiovascular: Regular Rate, Normal S1, Normal S2, No Murmurs Lungs: Clear to Auscultation, Normal Air Movement Abdomen: Normal Bowel Sounds, Soft, No Tenderness Neurological: Normal Gait, Normal Speech, Strength at 5/5 X4 Ext, Normal Tone, Sensation Intact, Cranial Nerves 3-12 NL, Reflexes 2+ Extremities: No Clubbing, No Cyanosis, No Edema, Normal Pulses, No Tenderness/ Swelling Current Medications: Current Medications Sig/Beti Start time Last Medication Dose Route Stop Time Status Admin Acetaminophen 650 MG Q6P PRN 04/14 1530 AC PO Acetaminophen 1,000 MG Q6P PRN 04/14 1530 AC IV Bacitracin 1 IVELISSE BID 04/14 2200 AC 04/15 EXT 1823 Cyclobenzaprine HCl 5 MG TID PRN 04/14 1900 AC 04/15 PO 0908 Gabapentin 300 MG TID 04/14 2200 AC 04/15 PO 2100 Heparin Sodium 5,000 UNIT Q8 04/14 220 AC (Porcine) SC Insulin Aspart 0 TIDAC 04/14 1700 AC 04/15 SC 1233 Lidocaine 1 PAT DAILY 04/14 1900 AC EXT Losartan Potassium 100 MG DAILY 04/15 1000 AC 04/15 PO 0907 Meclizine HCl 25 MG TID 04/14 2200 AC 04/15 PO 2100 Senna 187 MG AT BEDTIME 04/14 2200 AC PO Sodium Chloride 1,000 ML Q13H 04/15 1645 AC 04/15 IV 1823 Last 24 Hrs of Labs/Mics: Laboratory Tests 04/15/17 0610: Anion Gap 5, Estimated GFR > 60, BUN/Creatinine Ratio 21.7, CBC w Diff NO MAN DIFF REQ, RBC 3.64 L, MCV 87.6, MCH 29.1, RDW 14.1, MPV 8.5, Gran % 59.8, Lymphocytes % 27.2, Monocytes % 8.9, Eosinophils % 3.6, Basophils % 0.5, Absolute Granulocytes 2.8, Absolute Lymphocytes 1.3, Absolute Monocytes 0.4, Absolute Eosinophils 0.2, Absolute Basophils 0, PUBS MCHC 33.2
[2017-04-16 08:34] VITALS: BP 120/78
[2017-04-16 09:23] VITALS: BP 160/60
--- NOTE | 2017-04-16 12:00 | NUR ---
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 RN also aware.
[2017-04-16] MEDS ORDERED: MECLIZINE HCL25 MG PO (12:43)
[2017-04-16] MEDS ORDERED: LIDODERM1 EACH EXT (12:43)
== END 2017-04-16 13:30 | disposition home health service (06) ==
LOC: ERH 08:46 → ERHI 14:58 → 1NO 14:58 → EDBEDREQ 15:54 → ENRESERV 16:48 → ENTRNSPT 18:50 → 1NO 19:33 → CMPTRNSPT 19:38 → ENPENDDIS 04-15 14:25 → 1NO 04-16 07:08 → EDPENDDISDT 04-16 12:39 → EDPENDDISTM 04-16 12:39 → 1NO 04-16 13:30
PROVIDERS: Emergency Medicine; Internal Medicine Infectious Disease; ADMIT Internal Medicine
DX: R42 Dizziness and giddiness (principal); I10 Essential (primary) hypertension; M10.9 Gout, unspecified; E11.42 Type 2 diabetes mellitus with diabetic polyneuropathy; Z79.84 Long term (current) use of oral hypoglycemic drugs; Z85.3 Personal history of malignant neoplasm of breast; M54.5 Low back pain
CPT/HCPCS: 36415; 72110; 82436; 93005; 93010; 97110-GP; 97116-GP; 97161-GP; G0378; G8978-GP; G8979-GP; G8980-GP; J0131; J1644; J3360; J3490

== ENCOUNTER 2018-06-16 09:28 | Emergency (ER) | payer OTHER, MEDICARE ==
[~2018-06-16] VITALS: Ht 162.6 cm; Wt 83.9 kg
[~2018-06-16 09:28] MED LIST changes: +ASPIRIN EC81 M1 PO; +COLCRYS0.6 M1 PO; +GABAPENTIN300 M2 PO; +LIDODERM1 EACH EXT; +MECLIZINE HCL25 MG PO; +METFORMIN HCL500 M2 PO; +PREDNISONE50 M1 PO; +SENNA8.6 M3 PO
--- NOTE | 2018-06-16 09:50 | ED AMS/SEIZURE/WEAK/DIZZY ---
History of Present Illness General Chief Complaint: Dizziness Stated Complaint: DIZZY X 2 WEEKS Source: patient Exam Limitations: no limitations Vital Signs & Intake/Output Vital Signs & Intake/Output Vital Signs Date Time Temp Pulse Resp B/P B/P Pulse O2 O2 Flow FiO2 Mean Ox Delivery Rate 06/16 1117 98.1 58 17 167/84 98 Room Air ED Intake and Output 06/17 0000 06/16 1200 Intake Total Output Total Balance Patient 185 lb Weight Weight Reported by Patient Measurement Method Allergies Coded Allergies: morphine (Mild, GI UPSET 12/24/15) oxycodone (Mild, GI UPSET 12/24/15) Penicillins (12/24/15) Sulfa (Sulfonamide Antibiotics) (12/24/15) ibuprofen (12/24/15) Reconcile Medications Aspirin (Ecotrin*) 81 MG TABLET.DR 1 TAB PO DAILY HEART HEALTH (Reported) Gabapentin 300 MG CAPSULE 1 CAP PO TID neuropathy (Reported) Glipizide 5 MG TABLET 1 TAB PO BID diabetes (Reported) Losartan Potassium 100 MG TABLET 1 TAB PO DAILY htn (Reported) Meclizine HCl 25 MG TABLET 1 TAB PO TIDPRN PRN DIZZY Meclizine HCl 25 MG TABLET 1 TAB PO TIDPRN PRN DIZZY Metformin HCl (Metformin HCl ER) 500 MG TAB.ER.24 2 TAB PO BID DIABETES ( Reported) Tylenol With Codeine (Tylenol With Codeine #3 Tablet) 300 MG-30 MG TABLET 1 TAB PO BIDP PRN PAIN Triage Note: 68F REPORTS DIZZINESS AND FEELING FAINT FOR TWO WEEKS. WAS SUPPOSED TO HAVE BLOODWORK TODAY AND AN XRAY OF BACK DUE TO SCIATIC PAIN. +HEADACHES AND BLURRED VISION TO BOTH EYES. DENIES CP/SOB/PALP. DENIES LOWER EXT SWELLING. REPORTS HX VERTIGO AND DM, ACCUCHECK 149 IN TRIAGE. REPORTS DIZZINESS WORSE W WALKING AND LAYING DOWN. AMBULATORY WITHOUT ISSUE. -N/V Triage Nurses Notes Reviewed? yes Onset: Gradual Duration: week(s): (2), changing over time, continues in ED Timing: remote history Injury Environment: home Severity: mild, moderate Severity Numbers: 6 No Modifying Factors: none LMP (ages 10-50): post menopausal, unknown : No HPI: 68-year-old female past medical history of diabetes, vertigo, hypertension presents for evaluation of episodes of dizziness lightheadedness and headaches. Patient reports she first noticed the symptoms better to weeks ago and they've been persistent. The dizziness is worse when she is walking or moving her head improved when resting. She denies any head trauma chest pain or shortness of breath no slurred speech. She does note some bilateral blurred vision. She states that she has had a couple episodes where she thought she may pass out several days ago. She never actually did lose consciousness. She is able to walk without difficulty. She contacted her primary care doctor who ordered blood work the patient is not completed. She denies any focal weakness, fever, neck pain or any other associated symptoms. Patient has been evaluated for similar symptoms in the past but cannot say if this is similar. No nausea vomiting or abdominal pain. No lower extremity edema (Sascha Johnson) Past History Travel History Traveled to [place] past 21 day No Medical History Any Pertinent Medical History? 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 No (Sascha Johnson) Review of Systems Review of Systems Constitutional: Reports: no symptoms. EENTM: Reports: no symptoms. Respiratory: Reports: no symptoms. Cardiovascular: Reports: no symptoms. GI: Reports: no symptoms. Genitourinary: Reports: no symptoms. Musculoskeletal: Reports: no symptoms. Skin: Reports: no symptoms. Neurological/Psychological: Reports: see HPI (dizzy), headache. Hematologic/Endocrine: Reports: no symptoms. Immunologic/Allergic: Reports: no symptoms. All Other Systems: Reviewed and Negative (Sascha Johnson) Physical Exam Physical Exam General Appearance: well developed/nourished, no apparent distress, alert, awake Head: atraumatic, normal appearance Eyes: Bilateral: normal appearance, PERRL, EOMI. 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 No CVA/TIA Diagnosis No Sepsis Present: No Sepsis Focused Exam Completed? No (Pollo SCHAFER,Sascha) Progress Differential Diagnosis: arrythmia, anemia, benign positional vertigo, CVA/stroke , dehydration, electrolyte imbalance, intracranial Hem., intracranial mass/tumor , labrynthitis, Meniere's disease, migraine DAVID, pneumonia, postural hypotension, subarachnoid Hem., UTI/pyelo, vertebrobasilar insuff Plan of Care: Laboratory Tests 06/16/18 1105: Urine Color YEL, Urine Clarity CLEAR, Urine pH 6.0, Ur Specific [place] 1.025, Urine Protein NEG, Urine Ketones NEG, Urine Nitrite NEG, Urine Bilirubin NEG, Urine Urobilinogen 2.0 H, Ur Leukocyte Esterase TRACE H, Ur Microscopic SEDIMENT EXAMINED, Urine RBC 1-3, Urine WBC RARE, Ur Epithelial Cells MOD H, Urine Bacteria MOD H, Urine Hemoglobin NEG, Urine Glucose NEG Patient transfer evaluation of dizziness lightheadedness and several episodes of presyncope. This is been going on for 2 weeks. She is neurologically intact her vital signs are stable she has a steady gait. His been no fall or head trauma. No chest pain or shortness of breath. Patient was medicated with meclizine labs CT head and chest x-ray EKG obtained. Evaluation is unremarkable. Blood work imaging within normal limits. Spoke with patient's primary care doctor Dr. Pereira who feels the patient can be discharged on meclizine. Reviewed all results of today's visit with patient she is feeling somewhat better after meclizine. She'll be given a prescription to go home with. Advised a rest and drink plenty of fluids she'll be referred to ear nose and throat. Discussed return with cautions in detail. Case discussed with Dr. Szymanski agrees. Diagnostic Imaging: Viewed by Me: Radiology Read, CT Scan. Discussed w/RAD: Radiology Read, CT Scan. Radiology Impression: PATIENT: RAFAEL ARAGON PRESENT AGE: 68 PATIENT ACCOUNT NO: [id number] : 51 LOCATION: [facility] ORDERING PHYSICIAN: Sascha SCHAFER SERVICE DATE: 06/16/18 EXAM TYPE: CAT - CT HEAD WO IV CONTRAST EXAMINATION: CT HEAD WITHOUT CONTRAST CLINICAL INFORMATION: Dizzy, presyncope with frontal headache. Assess for intracranial hemorrhage or mass. COMPARISON: MRI scan of the brain 12/12/2017. CT scan of the head 03/29/2013. TECHNIQUE: Contiguous axial imaging was performed from the skull base to vertex without intravenous administration of contrast. DLP: 709.26 mGy-cm FINDINGS: There is no evidence of acute intracranial hemorrhage or territorial infarction. No abnormal mass effect or midline shift is seen. Major to white matter differentiation is well preserved. No extra-axial fluid collections are identified. The ventricles are normal in size. Brain parenchymal attenuation is unremarkable. There are no acute osseous findings. There is hyperostosis frontalis interna. The soft tissues are unremarkable. There are atheromatous calcifications of the cavernous internal carotid arteries bilaterally. The visualized mastoid air cells and paranasal sinuses are well- aerated. IMPRESSION: 1. There are no acute bleeds or territorial infarcts. There are no masses. 2. The paranasal sinuses are well-aerated. DICTATED BY: Tai Funez MD DATE/TIME DICTATED:06/16/181030 OIL WELL LOGGING ENGINEER:CASH DATE/TIME TRANSCRIBED:06/16/181030 CONFIDENTIAL, DO NOT COPY WITHOUT APPROPRIATE AUTHORIZATION. <Electronically signed in Other Vendor System> CXR Impression: PATIENT: RAFAEL ARAGON PRESENT AGE: 68 PATIENT ACCOUNT NO: [id number] : 51 LOCATION: [facility] ORDERING PHYSICIAN: Sascha SCHAFER SERVICE DATE: 06/16/18 EXAM TYPE: RAD - XRY- PORTABLE CHEST XRAY EXAMINATION: XR PORTABLE CHEST CLINICAL INFORMATION: Dizzy. Presumptive DIAGNOSIS: Pneumonia, CHF COMPARISON: CTA dated 04/14/2017 and radiograph dated 03/10/2015 TECHNIQUE: Portable frontal view of the chest was obtained with slightly lordotic positioning. FINDINGS: Lungs are clear. No consolidation, pneumothorax, or pleural effusion. Cardiac and mediastinal contours are normal. Calcific atherosclerosis is noted in the thoracic aorta. Pulmonary vasculature is unremarkable. Osteoarthritis is present in the acromioclavicular and glenohumeral joints. IMPRESSION: No acute cardiopulmonary findings DICTATED BY: Juan Jose Martines MD DATE/TIME DICTATED:06/16/181027 OIL WELL LOGGING ENGINEER:CASH DATE/TIME TRANSCRIBED:06/16/181027 CONFIDENTIAL, DO NOT COPY WITHOUT APPROPRIATE AUTHORIZATION. <Electronically signed in Other Vendor System> SIGNED BY: Juan Jose Martines MD 06/16/18 1033 Initial ED EKG: normal sinus rhythm, no ST T wave changes Prior EKG: unchanged (Sascha Johnson) Departure Departure Disposition: HOME OR SELF CARE Condition: Stable Clinical Impression Primary Impression: Dizziness Referrals: Wilfred CAMPUZANO,Bridgett Pereira MD,[facility] (PCP/Family) Additional Instructions: Rest and drink plenty of fluids. Continue meclizine every 8-12 hours as needed for dizziness this may cause drowsiness. Make a follow-up with her primary care doctor to review all results of today's visit. You're also being referred to an ear nose and throat doctor for further evaluation and treatment. Monitor your symptoms return with any concerns. Departure Forms: Customer Survey General Discharge Information Prescriptions: Current Visit Scripts Meclizine HCl 1 TAB PO TIDPRN PRN DIZZY #30 TAB Meclizine HCl 1 TAB PO TIDPRN PRN DIZZY #30 TAB (Sascha Johnson) PA/COLLET GLUER Co-Sign Statement Statement: ED Attending supervision documentation- [X] I saw and evaluated the patient. I have also reviewed all the pertinent lab results and diagnostic results. I agree with the findings and the plan of care as documented in the PA's/COLLET GLUER's documentation. [X] I have reviewed the ED Record and agree with the PA's/COLLET GLUER's documentation. [] Additions or exceptions (if any) to the PAs/COLLET GLUER's note and plan are summarized below: [] (Stephon CAMPUZANO,Giacomo Estrada)
[2018-06-16 10:11] LABS: ABSOLUTE BASOPHIL COUNT 0 /CUMM (0.0-0.2); ABSOLUTE EOSINOPHIL COUNT 0.1 /CUMM (0.0-0.7); ABSOLUTE GRANULOCYTE CT 3.6 /CUMM (1.4-6.5); ABSOLUTE LYMPH COUNT 1.2 /CUMM (1.2-3.4); ABSOLUTE MONOCYTE COUNT 0.4 /CUMM (0.10-0.60); BASOPHIL % 0.4 % (0.0-2.0); EOSINOPHIL % 1.7 % (0-5); GRANULOCYTE % 68.4 % (42.2-75.2); HEMATOCRIT 35.1 % (37-47); MEAN CORPUSCULAR HGB 29.3 PG (27.0-31.0); MEAN CORPUSCULAR HGB CONC 33.1 G/DL (33.0-37.0); MEAN CORPUSCULAR VOLUME 88.5 FL (81.0-99.0); PLATELET COUNT 233 /CUMM (130-400); RBC DISTRIBUTION WIDTH 12.5 % (11.5-14.5); RED BLOOD CELL CT 3.96 /CUMM (4.20-5.40); WHITE BLOOD CELL COUNT 5.2 /CUMM (4.8-10.8)
--- NOTE | 2018-06-16 10:33 | RADIOLOGY REPORT ---
EXAMINATION: XR PORTABLE CHEST CLINICAL INFORMATION: Dizzy. Presumptive DIAGNOSIS: Pneumonia, CHF COMPARISON: CTA dated 04/14/2017 and radiograph dated 03/10/2015 TECHNIQUE: Portable frontal view of the chest was obtained with slightly lordotic positioning. FINDINGS: Lungs are clear. No consolidation, pneumothorax, or pleural effusion. Cardiac and mediastinal contours are normal. Calcific atherosclerosis is noted in the thoracic aorta. Pulmonary vasculature is unremarkable. Osteoarthritis is present in the acromioclavicular and glenohumeral joints. IMPRESSION: No acute cardiopulmonary findings
--- NOTE | 2018-06-16 10:39 | CT SCAN REPORT ---
EXAMINATION: CT HEAD WITHOUT CONTRAST CLINICAL INFORMATION: Dizzy, presyncope with frontal headache. Assess for intracranial hemorrhage or mass. COMPARISON: MRI scan of the brain 12/12/2017. CT scan of the head 03/29/2013. TECHNIQUE: Contiguous axial imaging was performed from the skull base to vertex without intravenous administration of contrast. DLP: 709.26 mGy-cm FINDINGS: There is no evidence of acute intracranial hemorrhage or territorial infarction. No abnormal mass effect or midline shift is seen. Major to white matter differentiation is well preserved. No extra-axial fluid collections are identified. The ventricles are normal in size. Brain parenchymal attenuation is unremarkable. There are no acute osseous findings. There is hyperostosis frontalis interna. The soft tissues are unremarkable. There are atheromatous calcifications of the cavernous internal carotid arteries bilaterally. The visualized mastoid air cells and paranasal sinuses are well-aerated. IMPRESSION: 1. There are no acute bleeds or territorial infarcts. There are no masses. 2. The paranasal sinuses are well-aerated.
[2018-06-16 11:17] VITALS: BP 167/84
[2018-06-16] MEDS ORDERED: MECLIZINE HCL25 MG PO ×2 (11:36→11:43)
== END 2018-06-16 11:44 ==
LOC: ERH 09:28
PROVIDERS: Physician Assistant Medical
DX: R42 Dizziness and giddiness (principal); R51 Headache; H53.8 Other visual disturbances; I10 Essential (primary) hypertension; E11.9 Type 2 diabetes mellitus without complications; Z79.82 Long term (current) use of aspirin; Z79.84 Long term (current) use of oral hypoglycemic drugs
CPT/HCPCS: 71045; 81001; 93005; 93010